=== PATIENT | female | born 1940 | race Hispanic/Latino ===

== ENCOUNTER → 2017-12-28 | Outpatient (CLI) | payer BC, MEDICARE ==
[~2017-12-28] MED LIST: ASPI-1012 PO; ASPI-555 PO; ATOR10TA69 PO; CELE100C PO; CHOL100053 PO; ENALAPRIL PO; ESOM40CA54 PO; HYDR-305 PO; OMEG1CAP12 PO
== END ==
LOC: SHCH 11:09
PROVIDERS: ATTEND Internal Medicine Cardiovascular Disease
DX: I87.2 Venous insufficiency (chronic) (peripheral) (principal)
CPT/HCPCS: 93306; 93970

== ENCOUNTER → 2018-01-01 | Outpatient (CLI) | payer BC, MEDICARE ==
[~2018-01-01] MED LIST changes: +REGADENOSON 0.4 MG/5 ML PF SYG IVP SCH
== END | disposition home or self-care (01) ==
LOC: SHCH 14:45
PROVIDERS: ATTEND Internal Medicine Cardiovascular Disease
DX: R06.02 Shortness of breath (principal)
CPT/HCPCS: 78452; 93017; 96374; A9500 ×2; J2785

== ENCOUNTER 2018-03-25 14:47 | Emergency (ER) | payer BC, MEDICARE ==
[~2018-03-25 14:47] MED LIST changes: -ASPI-1012 PO; -ESOM40CA54 PO; -HYDR-305 PO; -REGADENOSON 0.4 MG/5 ML PF SYG IVP SCH
[2018-03-25] MEDS ORDERED: ACETAMINOPHEN EXTRA STRENGTH 500 MG TABLET ONE (15:29)
== END 2018-03-25 16:00 | disposition home or self-care (01) ==
LOC: EDH 14:47
DX: S43.491A Other sprain of right shoulder joint, initial encounter (principal); I10 Essential (primary) hypertension; M19.90 Unspecified osteoarthritis, unspecified site; Z88.6 Allergy status to analgesic agent; Z98.890 Other specified postprocedural states; X58.XXXA Exposure to other specified factors, initial encounter; Y93.89 Activity, other specified; Y92.098 Other place in other non-institutional residence as the place of occurrence of the external cause; Y99.8 Other external cause status
CPT/HCPCS: 99282

== ENCOUNTER 2018-04-16 09:07 | Inpatient (IN) | payer BC, MEDICARE ==
[2018-04-13 16:24] LABS: APPEARANCE,URINE CLEAR (CLEAR); BILIRUBIN,URINE NEGATIVE (NEGATIVE); COLOR,URINE YELLOW (YELLOW); GLUCOSE, URINE (UA) NEGATIVE (NEGATIVE); KETONES,URINE NEGATIVE (NEGATIVE); LEUKOCYTE ESTERASE ,URINE NEGATIVE (NEGATIVE); NITRATE,URINE NEGATIVE (NEGATIVE); OCCULT BLOOD,URINE NEGATIVE (NEGATIVE); PROTEIN,URINE TRACE (NEGATIVE)
[2018-04-13 16:26] VITALS: BP 145/61
[2018-04-13 16:44] LABS: INR 1.04 (0.85-1.15); PARTIAL THROMBOPLASTIN TIME 26.6 SEC (26.3-35.5); PROTHROMBIN TIME 10.9 SEC (9.6-11.6)
[2018-04-16] VITALS (25 sets, daily range): BP systolic 99–178; BP diastolic 37–86
[~2018-04-16] VITALS: Ht 152.4 cm; Wt 67.0 kg
[2018-04-16] MEDS: CEFAZOLIN SODIUM 1 GM VIAL IVP SCH ×3 (06:00→18:46)
[~2018-04-16 09:07] MED LIST changes: -ATOR10TA69 PO; -CELE100C PO; -CHOL100053 PO; -OMEG1CAP12 PO
[2018-04-16] MEDS ORDERED: LACTATED RINGERS 1000ML 1,000 ML IV ONE (09:49)
[2018-04-16] MEDS ORDERED: ACETAMINOPHEN EXTRA STRENGTH 500 MG TABLET ONE (10:30)
[2018-04-16] MEDS ORDERED: OXYCODONE HCL 10 MG TAB.SR.12H PO ONE (10:30)
[2018-04-16] MEDS ORDERED: CELECOXIB 200 MG CAP ONE (10:30)
[2018-04-16] MEDS ORDERED: KETOROLAC TROMETHAMINE 15MG/ML ONE (10:30)
[2018-04-16] MEDS ORDERED: ESOM40CA54 PO (10:39)
[2018-04-16] MEDS ORDERED: LIDOCAINE PF 2% 5ML ABBOJECT ONE (11:12)
[2018-04-16] MEDS ORDERED: PROPOFOL 10 MG/ML 20ML VIAL IV ONE (11:12)
[2018-04-16] MEDS ORDERED: DEXAMETHASONE SOD PHOSPHATE 10MG/ML 1ML VIAL ONE (11:12)
[2018-04-16] MEDS ORDERED: FENTANYL CITRATE PF 50 MCG/1 ML 2ML VIAL ONE ×2 (11:12→12:40)
[2018-04-16] MEDS ORDERED: NEOSTIGMINE 5MG/5ML SYR IV ONE (11:12)
[2018-04-16] MEDS ORDERED: MIDAZOLAM HCL 1 MG/ML 2ML VIAL ONE (11:13)
[2018-04-16] MEDS ORDERED: ROPIVACAINE 0.5% 5MG/ML 30ML IJ ONE (11:18)
[2018-04-16] MEDS ORDERED: BUPIVACAINE/PF 0.25% 30ML VIAL IJ ONE (12:06)
[2018-04-16] MEDS ORDERED: CEFAZOLIN SODIUM 1 GM VIAL ONE (12:06)
[2018-04-16] MEDS ORDERED: EPINEPHRINE 1 MG/ML AMPULE ONE (12:07)
[2018-04-16] MEDS ORDERED: EPHEDRINE SULFATE 50 MG/ML AMPULE ONE (12:07)
[2018-04-16] MEDS ORDERED: GLYCOPYRROLATE 0.2 MG/ML 5 ML VIAL ONE (12:15)
[2018-04-16] MEDS: TRANEXAMIC ACID 1000MG/10ML IV ONE ×2 (12:20→14:25)
[2018-04-16] MEDS ORDERED: POTASSIUM CHLORIDE 10% ELIXIR 20 MEQ/15 ML UDCUP PO PRN (14:00)
[2018-04-16] MEDS ORDERED: TRAMADOL HCL 50 MG TABLET PO PRN (14:00)
[2018-04-16] MEDS ORDERED: ONDANSETRON HCL 4 MG/2 ML VIAL IVP PRN (14:00)
[2018-04-16] MEDS ORDERED: POTASSIUM CHLORIDE 20 MEQ ERTAB PO PRN (14:00)
[2018-04-16] MEDS ORDERED: LIDOCAINE HCL-MPF 1% 2ML VIAL IVP PRN (14:00)
[2018-04-16] MEDS: ACETAMINOPHEN EXTRA STRENGTH 500 MG TABLET PO SCH ×2 (14:00→21:06)
[2018-04-16] MEDS ORDERED: DiphenhydrAMINE HCL 50 MG/ML VIAL IVP PRN (14:00)
[2018-04-16] MEDS ORDERED: OXYCODONE HCL 5 MG TAB PO PRN ×2 (14:00)
[2018-04-16] MEDS ORDERED: CALCIUM CARBONATE 500 MG TABLET PO PRN (14:00)
[2018-04-16] MEDS ORDERED: KETOROLAC TROMETHAMINE 15MG/ML IV PRN (14:00)
[2018-04-16] MEDS ORDERED: FERROUS FUMARATE 324 MG TABLET PO PRN (14:00)
[2018-04-16] MEDS ORDERED: POTASSIUM CHLORIDE 20MEQ/100ML 100 ML IV PRN (14:00)
[2018-04-16] MEDS ORDERED: TEMAZEPAM 15 MG CAPSULE PO PRN (14:00)
[2018-04-16] MEDS: SODIUM CHLORIDE 0.9% 1000ML 1,000 ML IV SCH (15:27)
[2018-04-16] MEDS ORDERED: CEFAZOLIN 2GM / 50 ML 50 ML IV SCH (19:00)
[2018-04-16] MEDS: FAMOTIDINE 20MG TAB 20 MG TAB PO SCH (21:06)
[2018-04-16] MEDS: PREGABALIN 25 MG CAP PO SCH (21:06)
[2018-04-16] MEDS: CELECOXIB 200 MG CAP PO SCH (21:06)
[2018-04-16] MEDS: ASPIRIN 325 MG TABLET PO SCH (21:06)
[2018-04-17 00:20] VITALS: BP 141/70
[2018-04-17] MEDS: SODIUM CHLORIDE 0.9% 1000ML 1,000 ML IV SCH (00:44)
[2018-04-17] MEDS: CEFAZOLIN SODIUM 1 GM VIAL IVP SCH (03:15)
[2018-04-17 04:12] VITALS: BP 139/70
[2018-04-17] MEDS: ACETAMINOPHEN EXTRA STRENGTH 500 MG TABLET PO SCH ×2 (05:03→13:14)
[2018-04-17 05:23] LABS: HEMATOCRIT 32.1 % (36-48); MEAN CORPUSCULAR HEMOGLOBIN 30.4 pg (27.0-33.0); MEAN CORPUSCULAR HGB CONC 34.8 g/dL (32.0-36.0); MEAN CORPUSCULAR VOLUME 87.5 fL (79-99); PLATELET COUNT (AUTO) 202 K/uL (130-400); RED BLOOD CELL COUNT(AUTO) 3.67 MIL/uL (4.00-5.50); RED CELL DISTRIBUTION WIDTH 13.9 % (11.0-15.5); WHITE BLOOD COUNT (AUTO) 10.2 K/uL (4.8-10.8)
[2018-04-17 05:31] LABS: CREATININE 0.8 mg/dL (0.5-1.5); POTASSIUM 3.9 mmol/L (3.5-5.1)
[2018-04-17 07:53] VITALS: BP 132/68
[2018-04-17] MEDS: CELECOXIB 200 MG CAP PO SCH (08:20)
[2018-04-17] MEDS: PREGABALIN 25 MG CAP PO SCH (08:20)
[2018-04-17] MEDS: ASPIRIN 325 MG TABLET PO SCH (08:20)
[2018-04-17] MEDS: FAMOTIDINE 20MG TAB 20 MG TAB PO SCH (08:20)
[2018-04-17] MEDS ORDERED: ENALAPRIL MALEATE 10 MG TABLET PO SCH (09:00)
[2018-04-17] MEDS ORDERED: TAMSULOSIN HCL 0.4 MG CAP.ER.24H PO SCH (09:00)
[2018-04-17] MEDS ORDERED: POLYETHYLENE GLYCOL 3350 17 GM POWD.PACK PO SCH (09:00)
[2018-04-17 11:11] VITALS: BP 138/69
[2018-04-17 15:56] VITALS: BP 134/68
[2018-04-17] MEDS ORDERED: HYDR-305 PO (19:00)
[2018-04-17] MEDS ORDERED: ASPI-1012 PO (19:00)
[2018-04-19] MEDS ORDERED: BISACODYL 10 MG SUPP.RECT RC PRN (14:00)
== END 2018-04-17 20:00 | disposition home health service (06) | DRG 470 ==
LOC: DAHIP 09:07 → EDSTATUS 11:30 → 4AH 15:02
PROVIDERS: ADMIT Orthopaedic Surgery; ATTEND Orthopaedic Surgery
PROC: 0SRC0J9 Replacement of Right Knee Joint with Synthetic Substitute, Cemented, Open Approach (ICD-10-PCS; principal; 2018-04-16 12:10)
DX: M17.11 Unilateral primary osteoarthritis, right knee (principal); G89.29 Other chronic pain; I10 Essential (primary) hypertension; K21.9 Gastro-esophageal reflux disease without esophagitis; M54.9 Dorsalgia, unspecified; Z96.652 Presence of left artificial knee joint; Z83.3 Family history of diabetes mellitus; Z88.8 Allergy status to other drugs, medicaments and biological substances; Z91.018 Allergy to other foods
CPT/HCPCS: 36415; 80048; 81003; 85027; 85610; 85730; 88305; 88311; 96374; A4218; J0171; J0690; J1100; J1885; J2001; J2250; J2405; J2704; J2710; J2795; J3010; J3490; J7030; J7120

== ENCOUNTER 2021-04-12 16:50 | Emergency (ER) | payer MEDICARE, OTHER ==
[~2021-04-12 16:50] MED LIST changes: +ASPI-1012 PO; -ASPI-555 PO; +ESOM40CA54 PO; +HYDR-4453 PO
== END 2021-04-12 19:08 | disposition home or self-care (01) ==
LOC: EDH 16:50
DX: S00.03XA Contusion of scalp, initial encounter (principal); I10 Essential (primary) hypertension; M19.90 Unspecified osteoarthritis, unspecified site; Z88.6 Allergy status to analgesic agent; Z98.890 Other specified postprocedural states; W18.39XA Other fall on same level, initial encounter; Y93.89 Activity, other specified; Y92.89 Other specified places as the place of occurrence of the external cause; Y99.8 Other external cause status
CPT/HCPCS: 70450